=== PATIENT | male | born 1945 | race Caucasian/White ===

== ENCOUNTER 2023-05-20 13:50 | Outpatient (CLI) | payer MEDICARE, BC, SELFPAY | END 2023-05-20 13:51 | disposition home or self-care (01) | LOC: INJ CL 13:53 | PROVIDERS: PCP Family Medicine; Visit Provider Family Medicine | DX: M17.12 Unilateral primary osteoarthritis, left knee (principal); M25.562 Pain in left knee | CPT/HCPCS: 64454 ==

== ENCOUNTER 2023-06-17 13:02 | Outpatient (CLI) | payer MEDICARE, BC, SELFPAY | END 2023-06-17 13:03 | disposition home or self-care (01) | LOC: INJ CL 13:02 | PROVIDERS: PCP Family Medicine; Visit Provider Family Medicine | DX: M17.12 Unilateral primary osteoarthritis, left knee (principal); M25.562 Pain in left knee; G89.29 Other chronic pain | CPT/HCPCS: 64624; J2250; J3010 ==